=== PATIENT | female | born 1940 ===

== ENCOUNTER 2021-07-07 16:24 | Emergency (ER) | payer OTHER ==
[~2021-07-07] VITALS: Ht 162.6 cm; Wt 59.0 kg
[2021-07-07 17:14] LABS: Hematocrit 33.8 % (36.0-46.0); Mean Corpuscular Hemoglobin 26.5 pg (28.0-32.0); Mean Corpuscular Hgb Conc. 32.5 g/dL (32.0-36.0); Mean Corpuscular Volume 81.5 fL (80.0-100.0); Red Blood Cells 4.15 10^6/uL (4.0-5.20); Red Cell Distribution Width 17.2 % (11.8-14.3)
[2021-07-07 17:15] LABS: Band Neutrophils % (manual) 0; Basophils % (manual) 0 (0.0-2.0); Blast Cells 0; Eosinophils % (manual) 0 (0-7); Metamyelocytes % 0; Myelocytes % 0; Promyelocytes % 0; Reactive Lymphocytes 0
[2021-07-07 17:17] LABS: INR 1.05 (0.9-1.15); Partial Thromboplastin Time 28.9 sec (23.6-33.0)
[2021-07-07 17:27] LABS: Albumin 2.6 g/dL (3.4-5.0); Calcium 8.9 mg/dL (8.5-10.1)
[2021-07-07 17:32] LABS: BUN/Creatinine Ratio 15.2; Bilirubin, Total 0.5 mg/dL (0.2-1.0); Total Protein 6.6 g/dL (6.4-8.2)
[2021-07-07] MEDS ORDERED: cefTRIAXone 1GM/50ML D5W 50 ML IV ONE (18:00)
[2021-07-07 18:59] LABS: Lymphocytes % (manual) 7 (10.0-50.0); Monocytes % (manual) 11 (0-12)
[2021-07-07] MEDS ORDERED: POTASSIUM CHL 20MEQ/100ML 100 ML IV SCH (20:30)
[2021-07-07] MEDS ORDERED: DexAMETHasone SOD PHOS 10MG/1ML VIAL INJ IV ONE (20:30)
[2021-07-07] MEDS ORDERED: InsuLIN REG 1unit/0.01ml Soln (100units/ml) IV ONE (21:00)
[2021-07-08 01:30] VITALS: BP 157/88
== END 2021-07-08 02:03 | disposition home or self-care (01) ==
LOC: EDBD 16:24 → ER 16:24
DX: G93.41 Metabolic encephalopathy (principal); A41.89 Other specified sepsis; N39.0 Urinary tract infection, site not specified; E87.6 Hypokalemia; R41.82 Altered mental status, unspecified; E11.65 Type 2 diabetes mellitus with hyperglycemia; I10 Essential (primary) hypertension; E78.5 Hyperlipidemia, unspecified; J45.909 Unspecified asthma, uncomplicated; Z86.73 Personal history of transient ischemic attack (TIA), and cerebral infarction without residual deficits; Z20.822 Contact with and (suspected) exposure to COVID-19
CPT/HCPCS: 36415; 70450; 71045; 80053; 82728; 82962; 83605; 84484; 85007; 85027; 85610; 85730; 86141; 87040; 87426; 93005; 96365; 96368; 96375; 99291; J0696; J1100; J1815; J3480